=== PATIENT | female | born 1940 | race Caucasian/White ===

== ENCOUNTER → 2021-01-21 | Outpatient (CLI) | payer BC | LOC: WCC 11:32 | DX: L98.9 Disorder of the skin and subcutaneous tissue, unspecified (principal); L94.2 Calcinosis cutis; E11.622 Type 2 diabetes mellitus with other skin ulcer; E66.01 Morbid (severe) obesity due to excess calories | CPT/HCPCS: G0463 ==

== ENCOUNTER → 2021-02-07 | Outpatient (CLI) | payer BC | LOC: WCC 08:07 | DX: E11.622 Type 2 diabetes mellitus with other skin ulcer (principal); L97.219 Non-pressure chronic ulcer of right calf with unspecified severity; L98.9 Disorder of the skin and subcutaneous tissue, unspecified; L94.2 Calcinosis cutis; E66.01 Morbid (severe) obesity due to excess calories; Z68.25 Body mass index [BMI] 25.0-25.9, adult; Z88.8 Allergy status to other drugs, medicaments and biological substances; Z79.899 Other long term (current) drug therapy ==

== ENCOUNTER → 2021-02-13 | Outpatient (CLI) | payer BC | LOC: WCC 07:48 | DX: E11.622 Type 2 diabetes mellitus with other skin ulcer (principal); L97.819 Non-pressure chronic ulcer of other part of right lower leg with unspecified severity; S81.851A Open bite, right lower leg, initial encounter; L94.2 Calcinosis cutis; E66.01 Morbid (severe) obesity due to excess calories; Z88.8 Allergy status to other drugs, medicaments and biological substances; W57.XXXA Bitten or stung by nonvenomous insect and other nonvenomous arthropods, initial encounter; Y92.9 Unspecified place or not applicable ==

== ENCOUNTER → 2021-02-19 | Outpatient (CLI) | payer BC | LOC: WCC 09:29 | DX: S80.861A Insect bite (nonvenomous), right lower leg, initial encounter (principal); L94.2 Calcinosis cutis; E11.622 Type 2 diabetes mellitus with other skin ulcer; E66.01 Morbid (severe) obesity due to excess calories; E11.36 Type 2 diabetes mellitus with diabetic cataract; H26.9 Unspecified cataract; J45.909 Unspecified asthma, uncomplicated; W57.XXXA Bitten or stung by nonvenomous insect and other nonvenomous arthropods, initial encounter; Y92.9 Unspecified place or not applicable; Z88.8 Allergy status to other drugs, medicaments and biological substances ==

== ENCOUNTER → 2021-02-25 | Outpatient (CLI) | payer BC | END | disposition home or self-care (01) | LOC: WCC 11:35 | DX: L98.9 Disorder of the skin and subcutaneous tissue, unspecified (principal); L94.2 Calcinosis cutis; E11.622 Type 2 diabetes mellitus with other skin ulcer; E66.01 Morbid (severe) obesity due to excess calories; Z68.25 Body mass index [BMI] 25.0-25.9, adult ==

== ENCOUNTER → 2021-03-05 | Outpatient (CLI) | payer BC | LOC: WCC 07:34 | DX: S81.801A Unspecified open wound, right lower leg, initial encounter (principal); L98.9 Disorder of the skin and subcutaneous tissue, unspecified; L94.2 Calcinosis cutis; E11.622 Type 2 diabetes mellitus with other skin ulcer; E66.01 Morbid (severe) obesity due to excess calories; E11.36 Type 2 diabetes mellitus with diabetic cataract; H26.9 Unspecified cataract; J45.909 Unspecified asthma, uncomplicated; Z88.8 Allergy status to other drugs, medicaments and biological substances; X58.XXXA Exposure to other specified factors, initial encounter; Y92.9 Unspecified place or not applicable ==

== ENCOUNTER → 2021-03-07 | Outpatient (CLI) | payer BC | LOC: WCC 10:20 | DX: S71.151D Open bite, right thigh, subsequent encounter (principal); E11.36 Type 2 diabetes mellitus with diabetic cataract; H26.9 Unspecified cataract; J45.909 Unspecified asthma, uncomplicated; G40.909 Epilepsy, unspecified, not intractable, without status epilepticus; M19.90 Unspecified osteoarthritis, unspecified site | CPT/HCPCS: G0463 ==

== ENCOUNTER → 2021-03-19 | Outpatient (CLI) | payer BC | LOC: WCC 08:35 | DX: L94.2 Calcinosis cutis (principal); S81.802A Unspecified open wound, left lower leg, initial encounter; E66.01 Morbid (severe) obesity due to excess calories; E11.622 Type 2 diabetes mellitus with other skin ulcer; Z88.8 Allergy status to other drugs, medicaments and biological substances ==

== ENCOUNTER → 2021-04-03 | Outpatient (CLI) | payer BC | LOC: WCC 08:54 | DX: E11.622 Type 2 diabetes mellitus with other skin ulcer (principal); L98.9 Disorder of the skin and subcutaneous tissue, unspecified; L94.2 Calcinosis cutis; E66.01 Morbid (severe) obesity due to excess calories | CPT/HCPCS: 97597 ==